=== PATIENT | male | born 1955 | race Hispanic/Latino ===

== ENCOUNTER → 2017-12-30 | Outpatient (CLI) | payer OTHER | LOC: OIH 13:33 | PROVIDERS: ATTEND Family Medicine | DX: Z02.71 Encounter for disability determination (principal); M54.5 Low back pain | CPT/HCPCS: 72100; 73502 ==

== ENCOUNTER 2020-05-05 19:15 | Emergency (ER) | payer OTHER ==
[2020-05-06] MEDS ORDERED: SODIUM CHLORIDE 0.9% 500ML 500 ML IV ONE (01:41)
[2020-05-06] MEDS ORDERED: IOHEXOL-350 75 ML VIAL IV ONE (02:03)
== END 2020-05-06 03:22 | disposition home or self-care (01) ==
LOC: EDH 19:15
DX: U07.1 COVID-19 (principal); J12.89 Other viral pneumonia; M19.90 Unspecified osteoarthritis, unspecified site
CPT/HCPCS: 36415 ×2; 71045; 71275; 80053; 81001; 82550; 83605; 83690; 84484 ×2; 85025; 85378; 87804 ×2; 93005 ×2; 96360; 99285; J7040; Q9967; U0003

== ENCOUNTER 2022-11-01 11:01 | Emergency (ER) | payer MEDICARE, OTHER ==
[~2022-11-01] VITALS: Ht 170.2 cm; Wt 72.6 kg
[2022-11-01 11:02] VITALS: BP 147/93
[2022-11-01 11:22] LABS: BASOPHILS % (AUTO) 0.6 % (0.0-5.0); EOSINOPHILS % (AUTO) 2.8 % (0.0-8.0); HEMATOCRIT 43.3 % (42-54); LYMPHOCYTES % (AUTO) 25.8 % (21.0-51.0); MEAN CORPUSCULAR HEMOGLOBIN 30.5 pg (27.0-33.0); MEAN CORPUSCULAR HGB CONC 33.7 g/dL (32.0-36.0); MEAN CORPUSCULAR VOLUME 90.4 fL (79-99); MONOCYTES % (AUTO) 8.8 % (3.0-13.0); NEUTROPHILS % (AUTO) 61.7 % (40.0-77.0); PLATELET COUNT (AUTO) 317 K/uL (130-400); RED BLOOD CELL COUNT(AUTO) 4.79 MIL/uL (4.50-6.20); RED CELL DISTRIBUTION WIDTH 11.8 % (11.0-15.5); WHITE BLOOD COUNT (AUTO) 6.7 K/uL (4.8-10.8)
[2022-11-01 11:35] LABS: CREATININE 0.6 mg/dL (0.5-1.5); POTASSIUM 5.5 mmol/L (3.5-5.1)
[2022-11-01 11:39] LABS: ALBUMIN 3.4 g/dL (3.5-5.0); TOTAL PROTEIN, SERUM 7.6 g/dL (6.0-8.3)
[2022-11-01 11:48] LABS: APPEARANCE,URINE TURBID (CLEAR); BILIRUBIN,URINE NEGATIVE (NEGATIVE); COLOR,URINE YELLOW (YELLOW); GLUCOSE, URINE (UA) NEGATIVE (NEGATIVE); KETONES,URINE NEGATIVE (NEGATIVE); LEUKOCYTE ESTERASE ,URINE NEGATIVE Leu/uL (NEGATIVE); NITRATE,URINE NEGATIVE (NEGATIVE); OCCULT BLOOD,URINE NEGATIVE (NEGATIVE); PROTEIN,URINE 30 mg/dL (NEGATIVE)
[2022-11-01 11:50] LABS: BACTERIA,URINE RARE /HPF (None Seen); MUCUS,URINE FEW LPF (None Seen); SQUAMOUS EPITHELIAL CELL,UR RARE /HPF (0-2)
[2022-11-01 11:54] LABS: AMPHET/METH SCREEN,URINE NEGATIVE (NEGATIVE); BARBITURATE SCREEN, URINE NEGATIVE (NEGATIVE); BENZODIAZEPINES SCREEN,URINE NEGATIVE (NEGATIVE); CANNABINOID SCREEN,URINE NEGATIVE (NEGATIVE); COCAINE SCREEN,URINE NEGATIVE (NEGATIVE); OPIATE SCREEN,URINE NEGATIVE (NEGATIVE); PHENCYCLIDINE SCREEN,URINE NEGATIVE (NEGATIVE)
[2022-11-01] MEDS ORDERED: 0.9%NACL 1000ML 1,000 ML IV ONE (14:00)
[2022-11-01] MEDS ORDERED: NAPR-1196 PO (14:02)
== END 2022-11-01 15:04 | disposition home or self-care (01) ==
LOC: EDH 11:01
DX: E87.5 Hyperkalemia (principal); M94.0 Chondrocostal junction syndrome [Tietze]; E86.0 Dehydration
CPT/HCPCS: 99285; 96360; 71045; 83735; 84484; 80053; 80305; 85025; 81001; 36415; 93005; J7030

== ENCOUNTER → 2022-11-20 | Outpatient (CLI) | payer OTHER ==
[~2022-11-20] MED LIST: NAPR-1196 PO
== END | disposition home or self-care (01) ==
LOC: RAH 10:00
PROVIDERS: ATTEND Internal Medicine Cardiovascular Disease
DX: Z13.6 Encounter for screening for cardiovascular disorders (principal); R93.1 Abnormal findings on diagnostic imaging of heart and coronary circulation
CPT/HCPCS: 75571

== ENCOUNTER → 2022-11-21 | Outpatient (CLI) | payer OTHER | END | disposition home or self-care (01) | LOC: SHCH 10:42 | PROVIDERS: ATTEND Internal Medicine Cardiovascular Disease | DX: R07.9 Chest pain, unspecified (principal) | CPT/HCPCS: 93306 ==

== ENCOUNTER → 2022-12-25 | Outpatient (CLI) | payer OTHER | END | disposition home or self-care (01) | LOC: SHCH 14:45 | PROVIDERS: ATTEND Internal Medicine Cardiovascular Disease | DX: I65.23 Occlusion and stenosis of bilateral carotid arteries (principal) | CPT/HCPCS: 93880 ==

== ENCOUNTER → 2023-01-21 | Outpatient (CLI) | payer OTHER ==
[~2023-01-21] MED LIST changes: +REGADENOSON 0.4 MG/5 ML PF SYG IVP SCH
== END | disposition home or self-care (01) ==
LOC: SHCH 08:39
PROVIDERS: ATTEND Internal Medicine Cardiovascular Disease
DX: R07.9 Chest pain, unspecified (principal)
CPT/HCPCS: 78452; 96374; 93017; J2785; A9500 ×2

== ENCOUNTER → 2023-03-12 | Outpatient (CLI) | payer OTHER ==
[~2023-03-12] MED LIST changes: +ALBUTEROL 0.083% 2.5 MG/3 ML INH IH ONE; -REGADENOSON 0.4 MG/5 ML PF SYG IVP SCH
== END | disposition home or self-care (01) ==
LOC: RESP 10:34
PROVIDERS: ATTEND Nurse Practitioner
DX: R06.02 Shortness of breath (principal)
CPT/HCPCS: 94060; 94727; 94729

== ENCOUNTER → 2023-10-01 | Outpatient (CLI) | payer OTHER ==
[~2023-10-01] MED LIST changes: -ALBUTEROL 0.083% 2.5 MG/3 ML INH IH ONE
[2023-10-01 12:28] LABS: CHOLESTEROL 192 mg/dL (<200); HDL CHOLESTEROL 91 mg/dL (29-71); LDL DIRECT 95 mg/dL (0-99); TRIGLYCERIDES 53 mg/dL (30-200)
== END | disposition home or self-care (01) ==
LOC: LAB 08:57
PROVIDERS: ATTEND Physician Assistant
DX: I25.10 Atherosclerotic heart disease of native coronary artery without angina pectoris (principal)
CPT/HCPCS: 36415; 80061

== ENCOUNTER 2023-10-28 22:20 | Emergency (ER) | payer OTHER ==
[~2023-10-28] VITALS: Ht 167.6 cm; Wt 72.6 kg
[2023-10-29 00:14] VITALS: BP 142/65; PULSE 99; RESP 16; O2SAT 98
== END 2023-10-29 00:17 | disposition left against medical advice (07) ==
LOC: EDH 22:20
DX: M54.50 Low back pain, unspecified (principal); E78.00 Pure hypercholesterolemia, unspecified; V89.2XXA Person injured in unspecified motor-vehicle accident, traffic, initial encounter; Y93.89 Activity, other specified; Y92.89 Other specified places as the place of occurrence of the external cause; Y99.8 Other external cause status
CPT/HCPCS: 85025; 85610; 85730

== ENCOUNTER 2023-11-02 16:15 | Emergency (ER) | payer OTHER ==
[~2023-11-02] VITALS: Ht 170.2 cm; Wt 72.6 kg
[2023-11-02 16:52] LABS: BASOPHILS # (AUTO) 0.03 K/uL (0.00-0.20); BASOPHILS % (AUTO) 0.6 % (0.0-5.0); EOSINOPHILS # (AUTO) 0.14 K/uL (0.00-0.70); EOSINOPHILS % (AUTO) 2.9 % (0.0-8.0); HEMATOCRIT 36.9 % (42-54); IMMATURE GRANULOCYTE ABSOLUTE 0.03 K/uL (0-1); LYMPHOCYTES % (AUTO) 20.3 % (21.0-51.0); MEAN CORPUSCULAR HEMOGLOBIN 30.5 pg (27.0-33.0); MEAN CORPUSCULAR HGB CONC 33.9 g/dL (32.0-36.0); MONOCYTES # (AUTO) 0.6 K/uL (0.1-1.0); MONOCYTES % (AUTO) 12.8 % (3.0-13.0); NEUTROPHILS % (AUTO) 62.8 % (40.0-77.0); PLATELET COUNT (AUTO) 287 K/uL (130-400); RED CELL DISTRIBUTION WIDTH 11.8 % (11.0-15.5); WHITE BLOOD COUNT (AUTO) 4.8 K/uL (4.8-10.8)
[2023-11-02 17:12] LABS: CREATININE 1.1 mg/dL (0.5-1.5)
[2023-11-02 17:17] LABS: ALBUMIN 3.2 g/dL (3.5-5.0); BILIRUBIN,TOTAL 0.6 mg/dL (0.2-1.0); TOTAL PROTEIN, SERUM 7.1 g/dL (6.0-8.3)
[2023-11-02 18:11] VITALS: BP 140/69; PULSE 88; RESP 17; O2SAT 98
== END 2023-11-02 18:30 | disposition home or self-care (01) ==
LOC: EDH 16:15
DX: S80.11XA Contusion of right lower leg, initial encounter (principal); E78.00 Pure hypercholesterolemia, unspecified; V49.9XXA Car occupant (driver) (passenger) injured in unspecified traffic accident, initial encounter; Y93.89 Activity, other specified; Y92.89 Other specified places as the place of occurrence of the external cause; Y99.8 Other external cause status
CPT/HCPCS: 36415; 76882; 80053; 83605; 85025; 87040

== ENCOUNTER → 2023-12-03 | Outpatient (CLI) | payer OTHER ==
[2023-12-03 12:12] LABS: ALBUMIN 3.1 g/dL (3.5-5.0); BILIRUBIN,TOTAL 0.7 mg/dL (0.2-1.0); CREATININE 0.7 mg/dL (0.5-1.5); POTASSIUM 4.2 mmol/L (3.5-5.1)
== END | disposition home or self-care (01) ==
LOC: LAB 08:55
PROVIDERS: ATTEND Internal Medicine Cardiovascular Disease
DX: I10 Essential (primary) hypertension (principal)
CPT/HCPCS: 36415; 80053; 80061

== ENCOUNTER → 2023-12-26 | Outpatient (CLI) | payer OTHER | END | disposition home or self-care (01) | LOC: RAH 14:31 | PROVIDERS: ATTEND Internal Medicine | DX: L03.125 Acute lymphangitis of right lower limb (principal); R60.9 Edema, unspecified | CPT/HCPCS: 93971 ==

== ENCOUNTER → 2024-06-04 | Outpatient (CLI) | payer OTHER ==
[2024-06-04 12:43] LABS: CHOLESTEROL 186 mg/dL (<200); HDL CHOLESTEROL 72 mg/dL (29-71); LDL DIRECT 100 mg/dL (0-99); TRIGLYCERIDES 57 mg/dL (30-200)
== END ==
LOC: LAB 09:55
PROVIDERS: ATTEND Physician Assistant
DX: E78.5 Hyperlipidemia, unspecified (principal)
CPT/HCPCS: 36415; 80061

== ENCOUNTER → 2024-07-29 | Outpatient (CLI) | payer OTHER ==
[2024-07-29 13:13] LABS: ALBUMIN 3.1 g/dL (3.5-5.0); BILIRUBIN,DIRECT 0.1 mg/dL (0.0-0.3); BILIRUBIN,TOTAL 0.5 mg/dL (0.2-1.0); TOTAL PROTEIN, SERUM 7.3 g/dL (6.0-8.3)
== END | disposition home or self-care (01) ==
LOC: LAB 08:51
PROVIDERS: ATTEND Physician Assistant
DX: I10 Essential (primary) hypertension (principal); E78.5 Hyperlipidemia, unspecified
CPT/HCPCS: 36415; 80061; 80076

== ENCOUNTER → 2024-11-22 | Outpatient (CLI) | payer OTHER, MEDICARE ==
--- NOTE | 2024-11-22 14:59 | HMCIMG ---
CT ABD/PEL WO CON RENAL/APPY HISTORY: Microscopic hematuria COMPARISON: None TECHNIQUE: Multiple sequential axial images of the abdomen and pelvis were obtained from the dome of the diaphragm through symphysis pubis. Patient was not given contrast through intravenous route. Oral contrast was not given. FINDINGS: No pleural effusion is seen bilaterally. There is no evidence of parenchymal disease or pulmonary nodule of the visualized lower lungs. Degenerative changes of the thoracolumbar spine are present. The heart is not enlarged. Liver is enlarged with fatty changes measuring 16 cm. Gallbladder is contracted. The liver, spleen, adrenal glands and pancreas are unremarkable. There is no evidence of hydronephrosis bilaterally. No evidence of renal stone is seen. Fecal material is seen in the colon. There are normal size retroperitoneal and mesenteric lymph nodes. No ascites is seen. No CT evidence of acute appendicitis is seen. Clinical correlation is recommended. Pelvic sidewalls are symmetric bilaterally. Bladder is poorly distended. IMPRESSION: 1. No hydronephrosis is seen. Fecal material is seen in the colon. No bowel obstruction is seen. CT was performed with one or more following dose reduction techniques: automated exposure control, adjustment of the mA and kv according to patient's size, or use of a iterative reconstruction technique.
== END | disposition home or self-care (01) ==
LOC: RAH 13:50
PROVIDERS: ATTEND Internal Medicine
DX: K82.0 Obstruction of gallbladder (principal); R31.29 Other microscopic hematuria; R16.0 Hepatomegaly, not elsewhere classified; M47.815 Spondylosis without myelopathy or radiculopathy, thoracolumbar region; K76.0 Fatty (change of) liver, not elsewhere classified
CPT/HCPCS: 74176

== ENCOUNTER 2025-03-10 10:40 | Emergency (ER) | payer OTHER, MEDICARE ==
[~2025-03-10] VITALS: Ht 170.2 cm; Wt 71.7 kg
--- NOTE | 2025-03-10 10:49 | EKG ---
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
--- NOTE | 2025-03-10 11:09 | ERN ---
ED Note History of Present Illness Stated Complaint: CP Chief Complaint: Chest Pain Time Seen by MD: 10:43 Time Seen by Midlevel: 10:48 Dictation: 77-year-old male with a history of cholesterol coming in with complaints of chest pressure, shortness a breath and near syncopal episode. Patient states he was having a massage, noticed that when they were massages his neck he started to complain of pain, after the massage he was driving and began to feel chest pain, shortness of breath and had a near syncopal episode. States he had a call his son to come and pick him up. At this time patient does not have any chest pain or shortness a breath it is awake alert and oriented x4. Allergies: Coded Allergies: No Known Drug Allergies (Verified Allergy, 07/04/13) Home Meds Active Scripts Naproxen (Naproxen) 250 Mg Tablet, 250 MG PO BID for 10 Days, #20 TAB Prov:JORDAN BREWSTER MD 11/01/22 Past Medical History Past Medical History: High Cholesterol Surgical History: None Family History: DM Social History: Negative Review of System Dictation Constitutional: Negative for fever,chills, and weight loss Eyes: Negative for injury, pain,redness, and discharge ENT: Negative for injury,pain or swelling Cardiovascular: Negative for chest pain, palpitations, and edema Respiratory: Negative for shortness of breath, cough, and wheezing, Abdomen/GI: Negative for abdominal pain, nausea, vomiting, diarrhea, and constipation Back: Negative for injury and pain : Negative for injury, bleeding and discharge MS/Extremity: Negative for injury and deformity Skin: Negative for rash, and discoloration Neuro: Negative for headache, weakness, numbness, tingling, and seizure Psych: Negative for suicide ideation, homicidal ideation, and hallucinations Review of Systems: was completed Initial Vital Sign VS Vital Signs Date Time Temp Pulse Resp B/P (MAP) Pulse Ox O2 Delivery O2 Flow Rate FiO2 03/10/25 10:44 97.9 84 20 145/83 99 Room Air 0 03/10/25 11:51 21 Physical Exam Dictation General: awake, alert, NAD Head/Face: Normocephalic, atraumatic Eyes: PERRL, EOMI, vision at baseline ENT: oral cavity clear, TMs clear, no signs of infection Neck: Trachea midline, supple, no nuchal rigidity Cardiovascular: RRR, normal S1/S2, No MRGs, no JVD Respiratory: CTAB, no respiratory distress, No rales or wheezes Abdomen: Soft, non-tender, non-distended, normal bowel sounds, no guarding or rebound. Skin: Warm, dry, normal turgor, no rash MS/Extremity: Pulses equal, no cyanosis, neurovascular intact, FROM Neuro: COAx4, GCS 15, strength 5/5, CN 2-12 intact, normal cerebellar exam, normal gait, Psych: Normal behavior, mood, and affect normal Results (Laboratory/Radiology) Laboratory/Radiology Laboratory Tests Test 03/10/25 11:00 03/10/25 11:40 03/10/25 14:07 White Blood Count 5.0 K/uL (4.8-10.8) Red Blood Count 4.40 MIL/uL (4.50-6.20) L Hemoglobin 13.7 g/dL (14.0-18.0) L Hematocrit 40.4 % (42-54) L Mean Corpuscular Volume 91.8 fL (79-99) Mean Corpuscular Hemoglobin 31.1 pg (27.0-33.0) Mean Corpuscular Hemoglobin Concent 33.9 g/dL (32.0-36.0) Red Cell Distribution Width 11.6 % (11.0-15.5) Platelet Count 259 K/uL (130-400) Mean Platelet Volume 8.9 fL (7.5-10.5) Immature Granulocyte % (Auto) 0.4 % (0-1) Neutrophils (%) (Auto) 59.6 % (40.0-77.0) Lymphocytes (%) (Auto) 24.2 % (21.0-51.0) Monocytes (%) (Auto) 9.4 % (3.0-13.0) Eosinophils (%) (Auto) 5.8 % (0.0-8.0) Basophils (%) (Auto) 0.6 % (0.0-5.0) Neutrophils # (Auto) 3.0 K/uL (1.8-7.7) Lymphocytes # (Auto) 1.2 K/uL (1.0-4.8) Monocytes # (Auto) 0.5 K/uL (0.1-1.0) Eosinophils # (Auto) 0.29 K/uL (0.00-0.70) Basophils # (Auto) 0.03 K/uL (0.00-0.20) Absolute Immature Granulocyte (auto 0.02 K/uL (0-1) Nucleated Red Blood Cells 0.0 % (0.0-0.19) Sodium Level 137 mmol/L (136-145) Potassium Level 3.9 mmol/L (3.5-5.1) Chloride Level 101 mmol/L (101-111) Carbon Dioxide Level 32 mmol/L (21-32) Blood Urea Nitrogen 8 mg/dL (7-18) Creatinine 0.6 mg/dL (0.5-1.3) Glomerular Filtration Rate Calc 104 mL/min (>90) Random Glucose 106 mg/dL (70-105) H Total Calcium 8.9 mg/dL (8.5-10.1) Total Creatine Kinase 35 U/L (21-232) # Troponin I High Sensitivity 7 ng/L (4-75) 7 ng/L (4-75) B-Type Natriuretic Peptide 18 pg/mL (0-100) Urine Color COLORLESS (YELLOW) Urine Appearance CLEAR (CLEAR) Urine pH 6.5 (5.0-8.0) Urine Specific Palmer 1.001 (1.001-1.031) Urine Protein NEGATIVE mg/dL (NEGATIVE) Urine Glucose (UA) NEGATIVE mg/dL (NEGATIVE) Urine Ketones NEGATIVE mg/dL (NEGATIVE) Urine Occult Blood NEGATIVE (NEGATIVE) Urine Nitrate NEGATIVE (NEGATIVE) Urine Bilirubin NEGATIVE mg/dL (NEGATIVE) Urine Urobilinogen 0.2 mg/dL (0.2-1.0) Urine Leukocyte Esterase NEGATIVE Karrie/uL Labs Reviewed?: Yes EKG Comment: EKGs did not have 10 of 45, sinus rhythm at a rate of 85. No STEMI interpreted by ER MD. X-RAY Comment: [place] [id number] [place] [id number] IMAGING REPORT Signed PATIENT: MARIJA HANNA MR#: [id number] : 1955 SEX: M AGE: 69 LOCATION: [facility] ORDER [id number] STATUS: REG ER REPORT#: [id number] SERVICE 1040 REASON: CHEST PAIN ORDERING PHYSICIAN: ROSE LESTER DO PROCEDURE: CXR1VW - CHEST 1VW CHEST 1VW HISTORY: Chest pain COMPARISON: 11/01/2022 FINDINGS: A frontal projection of the chest was obtained. No acute pulmonary infiltrates is seen. The heart is normal in size. Prominent interstitial opacities. Degenerative changes are seen. Early calcifications are seen IMPRESSION: 1. No acute pulmonary infiltrate is seen. DICTATED BY: SHADY NGUYEN MD DATE: 03/10/25 1201 ELECTRONICALLY SIGNED BY: SHADY NGUYEN MD DATE: 03/10/[address] Scan Comment: [place] [id number] [id number] IMAGING REPORT Signed PATIENT: MARIJA HANNA MR#: [id number] : 1955 SEX: M AGE: 69 LOCATION: ED ORDER [id number] STATUS: REG ER REPORT#: [id number] SERVICE 1055 REASON: near sycope ORDERING PHYSICIAN: HUAN MCCATRHY NP PROCEDURE: CTA [facility] - CT ANGIO HEAD AND NECK CT ANGIO HEAD AND NECK HISTORY: Near syncope COMPARISON: None TECHNIQUE: CT angiography of the head was performed. The study was performed using angiographic technique with maximum intensity projection reconstruction images. Patient was given 75 cc of Omnipaque through intravenous route. FINDINGS: The ventricles and extraventricular CSF spaces are nondilated for patient's age. There is no midline shift, mass effect or herniation. No acute intracranial bleed is seen. Visualized portion of the paranasal sinuses are grossly within normal limits. No CT evidence of cerebral aneurysm or abnormal arteriovenous communication is seen. Diffuse atherosclerosis changes are present. Vertebrobasilar arterial system is grossly within normal limits. IMPRESSION: CTA Head 1. Atherosclerotic disease. Otherwise unremarkable CTA of the brain. TECHNIQUE: CT angiography of the neck was performed. The study was performed using angiographic technique with maximum intensity projection reconstruction images. FINDINGS: There are degenerative changes of the cervical spine. Parapharyngeal fat planes are preserved bilaterally. The airway is patent. Normal enhancement of the thyroid gland is noted. Visualized portion of the lung apices are unremarkable. The common, internal and external carotid arteries are visualized. No hemodynamically significant lesion is seen of either extracranial carotid artery system. Both vertebral arteries are seen with antegrade flow. IMPRESSION: CTA Neck 1. Atherosclerotic disease. No hemodynamically significant lesion is seen of either extracranial carotid artery system. CT was performed with one or more following dose reduction techniques: automated exposure control, adjustment of the mA and kv according to patient's size, or use of a iterative reconstruction technique. DICTATED BY: SHADY NGUYEN MD DATE: 03/10/25 143 ELECTRONICALLY SIGNED BY: SHADY NGUYEN MD DATE: 03/10/25 1436 ED Course ED Course Orders Procedure Category Date Status Time Vital Signs Per CPOE 03/10/25 Transmitted Routine 10:40 B-Type Natriuretic LAB 03/10/25 Complete Peptide 10:40 Chest 1vw RAD 03/10/25 Resulted 10:40 12 Lead Ekg Tracing- EKG 03/10/25 Complete Technical 10:40 Oxygen By Nc/Pulse Ox CPOE 03/10/25 Transmitted 10:40 Maintain Iv CPOE 03/10/25 Transmitted 10:40 Iv Insertion CPOE 03/10/25 Transmitted 10:40 Cardiac Monitoring CPOE 03/10/25 Transmitted 10:40 Pulse Oximetry With CPOE 03/10/25 Transmitted Vs And Prn 10:40 Cbc With Differential LAB 03/10/25 Complete 10:40 Activity: Br W/Brp CPOE 03/10/25 Transmitted With Assist 10:40 Creatine Kinase, Total LAB 03/10/25 Complete 10:40 Troponin I High LAB 03/10/25 Complete Sensitivity 10:40 Urinalysis Profile LAB 03/10/25 Complete 10:40 Basic Metabolic Panel LAB 03/10/25 Complete 10:40 Ct Angio Head And Neck CT 03/10/25 Resulted 10:55 Iohexol (Omnipaque) PHA 03/10/25 Complete 12:20 Troponin I High LAB 03/10/25 Complete Sensitivity 13:57 Current Medications Medications (Trade) Dose Ordered Sig/Bushra Route PRN Reason Start Time Stop Time Status Last Admin Dose Admin Iohexol (Omnipaque) 75 ml STK-MED ONCE IV 03/10/25 12:20 03/10/25 12:20 DC Vital Signs Date Time Temp Pulse Resp B/P (MAP) Pulse Ox O2 Delivery O2 Flow Rate FiO2 03/10/25 16:11 97.9 81 16 122/60 99 Room Air* 0 21 03/10/25 14:52 90 16 123/59 99 Room Air* 0 21 03/10/25 12:48 93 16 96/60 99 Room Air* 0 21 03/10/25 11:51 80 17 134/68 98 Room Air* 0 21 03/10/25 10:44 97.9 84 20 145/83 99 Room Air 0 HEART Score Response (Comments) Value History: Low suspicion (0) 0 EKG: Normal 0 Age: > 65yrs (+2) 2 Risk Factors: 1-2 risk factors (+1) 1 Initial Troponin: Normal limit (0) 0 Total 3 Medical Decision Making MDM MDM: 77-year-old male with a history of cholesterol coming in with complaints of chest pressure, shortness a breath and near syncopal episode. Patient states he was having a massage, noticed that when they were massages his neck he started to complain of pain, after the massage he was driving and began to feel chest pain, shortness of breath and had a near syncopal episode. States he had a call his son to come and pick him up. At this time patient does not have any chest pain or shortness a breath it is awake alert and oriented x4.CBC SHOWS NO LEUKOCYTOSIS, MILD ANEMIA OF HEMOGLOBIN 13 AND HEMATOCRIT 40, NO THROMBOCYTOPENIA. CHEMISTRY UNREMARKABLE. TROPONIN X2 NEGATIVE. EKGS DID NOT SHOW ANY ST ELEVATION OR DYSRHYTHMIAS. CHEST X-RAY SHOWS NO ACUTE PULMONARY INFILTRATES. HEART NORMAL SIZE. HEART SCORE THREE. UA SHOWS NO EVIDENCE OF URINARY TRACT INFECTION. DISCUSSED FINDINGS WITH THE PATIENT. GAVE PATIENT AN OPTION TO BE ADMITTED FOR FURTHER EVALUATION OR TO BE DISCHARGED TO FOLLOW UP WITH PCP. PATIENT STATES HE WOULD RATHER FOLLOW UP WITH DR. FELDMAN OUTPATIENT. DISCUSSED SIGNS AND SYMPTOMS OF WHEN TO RETURN BACK TO THE EMERGENCY ROOM. PATIENT VERBALIZED UNDERSTANDING, ANSWERED ALL QUESTIONS. DIFFERENTIAL DIAGNOSIS: ACS, ARRHYTHMIA, CVA RATIONALE: TESTS CONSIDERED AND ORDERED SECONDARY TO SHARED DECISION MAKING INCLUDE: PREVIOUS OUTSIDE RECORDS REVIEWED: OLD ER VISITS. RISK OF COMPLICATION AND/OR MORBIDITY OR MORTALITY OF PATIENT MANAGEMENT: NONE MEDICATIONS-PER MEDICATION RECONCILIATION NEED FOR HOSPITALIZATION: PATIENT DOES NOT MEET CRITERIA FOR HOSPITALIZATION. NEED FOR EMERGENCY MAJOR/MINOR SURGERY: NO THERE ARE NO SOCIAL CONCERNS WITH THIS PATIENT. PRESCRIPTION DRUG MANAGEMENT PRESCRIPTIONS WILL INCLUDE SYMPTOMATIC CARE PATIENT'S PRIOR EXTERNAL MEDICAL RECORDS FROM OTHER ER VISITS WERE REVIEWED BY ME INDICATED. PRIOR TESTING AND RESULTS FROM PREVIOUS VISITS WERE REVIEWED. PRIOR TESTS WERE TAKEN INTO ACCOUNT WITH MEDICAL DECISION MAKING AND RESOURCE UTILIZATION, INDEPENDENT HISTORIAN/HISTORIANS WERE USED TO OBTAIN COMPLETE MEDICAL HISTORY. I INDEPENDENTLY INTERPRETED THE TEST THAT WERE PERFORMED, RESULTS WERE REVIEWED BY ME AND CONSIDERED FINDINGS ON RADIOLOGY IF ORDERED. MEDICAL MANAGEMENT AND EXAMINATION INTERPRETATION DISCUSSIONS WERE HAD BY ME WITH OTHER QUALIFIED HEALTHCARE PROFESSIONALS INDICATED FOR THE PATIENT'S CARE. DX & DISP Disposition: Discharge Departure Impression: Primary Impression: Near syncope Condition: Stable Referrals: NELLI FELDMAN MD (PCP) Time of Disposition: 15:49 I have reviewed the case, and I agree with, Diagnosis and Plan I performed a substantive portion of the visit. I have reviewed and personally made and approve the management plan that is documented in the notes by myself with FERN/resident. I acknowledged full responsibility for the patient's management plan. 69-year-old male had some near syncopal episode after a mas ayaka to his neck. EKG vital signs stable. Troponin x2 stable. We did get a CTA of the head and neck to ensure no vertebral dissection or other life- threatening pathology. All came back negative. We discussed with the pros and cons of an admission, offered the patient admission for further evaluation and observation due to the near syncopal episode, with the patient reports that he wants to go home. He appears stable this time. He will follow up with his primary doctor this week. HUAN MCCARTHY NP March 10, 2025 11:08 ROSE LESTER DO March 11, 2025 09:33
[2025-03-10 11:11] LABS: BASOPHILS # (AUTO) 0.03 K/uL (0.00-0.20); BASOPHILS % (AUTO) 0.6 % (0.0-5.0); EOSINOPHILS # (AUTO) 0.29 K/uL (0.00-0.70); EOSINOPHILS % (AUTO) 5.8 % (0.0-8.0); HEMATOCRIT 40.4 % (42-54); IMMATURE GRANULOCYTE ABSOLUTE 0.02 K/uL (0-1); LYMPHOCYTES # (AUTO) 1.2 K/uL (1.0-4.8); LYMPHOCYTES % (AUTO) 24.2 % (21.0-51.0); MEAN CORPUSCULAR HEMOGLOBIN 31.1 pg (27.0-33.0); MEAN CORPUSCULAR HGB CONC 33.9 g/dL (32.0-36.0); MEAN CORPUSCULAR VOLUME 91.8 fL (79-99); MONOCYTES # (AUTO) 0.5 K/uL (0.1-1.0); MONOCYTES % (AUTO) 9.4 % (3.0-13.0); NEUTROPHILS % (AUTO) 59.6 % (40.0-77.0); PLATELET COUNT (AUTO) 259 K/uL (130-400); RED CELL DISTRIBUTION WIDTH 11.6 % (11.0-15.5)
[2025-03-10 11:13] LABS: CREATININE 0.6 mg/dL (0.5-1.3); POTASSIUM 3.9 mmol/L (3.5-5.1)
[2025-03-10 11:37] LABS: B-TYPE NATRIURETIC PEPTIDE 18 pg/mL (0-100)
[2025-03-10 11:56] LABS: APPEARANCE,URINE CLEAR (CLEAR); BILIRUBIN,URINE NEGATIVE (NEGATIVE); COLOR,URINE COLORLESS (YELLOW); GLUCOSE, URINE (UA) NEGATIVE (NEGATIVE); KETONES,URINE NEGATIVE (NEGATIVE); LEUKOCYTE ESTERASE ,URINE NEGATIVE Leu/uL (NEGATIVE); NITRATE,URINE NEGATIVE (NEGATIVE); OCCULT BLOOD,URINE NEGATIVE (NEGATIVE); PH,URINE 6.5 (5.0-8.0); PROTEIN,URINE NEGATIVE (NEGATIVE); UROBILINOGEN,URINE 0.2 mg/dL (0.2-1.0)
[2025-03-10 11:59] LABS: ADD UA MICROSCOPIC NO
--- NOTE | 2025-03-10 12:05 | HMCIMG ---
CHEST 1VW HISTORY: Chest pain COMPARISON: 11/01/2022 FINDINGS: A frontal projection of the chest was obtained. No acute pulmonary infiltrates is seen. The heart is normal in size. Prominent interstitial opacities. Degenerative changes are seen. Early calcifications are seen IMPRESSION: 1. No acute pulmonary infiltrate is seen.
[2025-03-10] MEDS ORDERED: IOHEXOL-350 75 ML VIAL IV ONE (12:20)
--- NOTE | 2025-03-10 14:36 | HMCIMG ---
CT ANGIO HEAD AND NECK HISTORY: Near syncope COMPARISON: None TECHNIQUE: CT angiography of the head was performed. The study was performed using angiographic technique with maximum intensity projection reconstruction images. Patient was given 75 cc of Omnipaque through intravenous route. FINDINGS: The ventricles and extraventricular CSF spaces are nondilated for patient's age. There is no midline shift, mass effect or herniation. No acute intracranial bleed is seen. Visualized portion of the paranasal sinuses are grossly within normal limits. No CT evidence of cerebral aneurysm or abnormal arteriovenous communication is seen. Diffuse atherosclerosis changes are present. Vertebrobasilar arterial system is grossly within normal limits. IMPRESSION: CTA Head 1. Atherosclerotic disease. Otherwise unremarkable CTA of the brain. TECHNIQUE: CT angiography of the neck was performed. The study was performed using angiographic technique with maximum intensity projection reconstruction images. FINDINGS: There are degenerative changes of the cervical spine. Parapharyngeal fat planes are preserved bilaterally. The airway is patent. Normal enhancement of the thyroid gland is noted. Visualized portion of the lung apices are unremarkable. The common, internal and external carotid arteries are visualized. No hemodynamically significant lesion is seen of either extracranial carotid artery system. Both vertebral arteries are seen with antegrade flow. IMPRESSION: CTA Neck 1. Atherosclerotic disease. No hemodynamically significant lesion is seen of either extracranial carotid artery system. CT was performed with one or more following dose reduction techniques: automated exposure control, adjustment of the mA and kv according to patient's size, or use of a iterative reconstruction technique.
[2025-03-10 16:11] VITALS: BP 122/60; PULSE 81; RESP 16; TEMP 97.9; O2SAT 99
== END 2025-03-10 16:13 | disposition home or self-care (01) ==
LOC: EDH 10:40
DX: R55 Syncope and collapse (principal); E78.00 Pure hypercholesterolemia, unspecified; Z79.899 Other long term (current) drug therapy
CPT/HCPCS: 70496; 99284; 71045; 82550; 84484 ×2; 80048; 83880; 85025; 81003; 36415; 70498; 93005; Q9967

== ENCOUNTER → 2025-09-08 | Outpatient (CLI) | payer OTHER ==
[2025-09-08] MEDS: REGADENOSON 0.4 MG/5 ML PF SYG IVP ONE (11:53)
--- NOTE | 2025-09-08 17:30 | HMCSR ---
APPROVED REPORT Height: 5 ft 6in Weight: 158 lbs TEST INDICATIONS OTHER FORMS OF DYSPNEA The imaging protocol used to acquire images was Rest Tc-99m/stress Tc-99m 1 day Consent: The procedure was explained and understood by the patient. Informerd consent was witnessed Roger Hopkins RN First, low dose rest was performed then high dose stress. RESTING DATA: The resting ekg shows: NSR Rest SPECT myocardial perfusion imaging was performed in supine position minutes following the intra venous injection of 11 mCi of Tc-99 Sestamibi. Time of rest injection: 11:10: Date: 09/08/2025 Time of rest imagin:10: Date: 09/08/2025 PHARMACOLOGIC STRESS: Pharmacologic stress test was performed by injecting regadenoson 0.4 mg IV push followed by the intra venous injection of 28 mCi of Tc-99 Sestamibi. Time of stress injection: 12:32: Date: 09/08/2025 Time of stress imagin:40: Date: 09/08/2025 Heart Rate at time of stress injection: 63 bpm. The images were gated to evaluate regional wall motion and calculate left ventricular ejection fracti on. STRESS DETAILS Reason for Termination: Infusion complete Stress Symptoms: Dyspnea Max HR Achieved: 104 bpm % of APMHR Achieved: 81 Max Blood Pressure: 125/65 mmHg Stress ECG: NSR Study quality was good. Lung uptake was Normal. Artifact: breast and diaphragmatic artifact LEFT VENTRICLE Size: The left ventricular size is normal. Systolic Function:The left ventricular systolic function is normal. Wall Motion: No regional wall motion abnormalities noted. The left ventricular ejection fraction was calculated to be 73%.TID = 0.72. LV PERFUSION The rest and stress images show normal perfusion. IMPRESSION Normal pharmacologic nuclear stress test. Global LV Function: Normal Stress ECG Summary: Normal LV Perfusion Summary: Normal Conclusion Normal pharmacologic nuclear stress test. Global LV Function: Normal Stress ECG Summary: Normal LV Perfusion Summary: Normal
== END | disposition home or self-care (01) ==
LOC: RAH 10:50
PROVIDERS: ATTEND Internal Medicine Cardiovascular Disease
DX: R06.09 Other forms of dyspnea (principal)
CPT/HCPCS: 78452; 93017; J2785; A9500 ×2